=== PATIENT | female | born 1990 | race Caucasian/White ===

== ENCOUNTER 2017-07-17 14:51 | Emergency (ER) | payer MEDICAID, OTHER ==
[~2017-07-17] VITALS: Ht 160 cm; Wt 60.0 kg
[2017-07-17] MEDS ORDERED: BACITRACIN ZINC OINT UDPKT TOP ONE (18:30)
[2017-07-17] MEDS ORDERED: LIDOCAINE HCL 1%/EPI 1:200,000 30 ML VIAL MC ONE (18:30)
[2017-07-17] MEDS ORDERED: LIDOCAINE HCL/EPINEPHRINE 1%-EPI 1:100,000 50 ML VIAL INFIL ONE (18:43)
[2017-07-17 19:05] VITALS: BP 115/72
== END 2017-07-17 19:28 | disposition home or self-care (01) ==
LOC: ER 14:54
DX: L02.413 Cutaneous abscess of right upper limb (principal); L02.01 Cutaneous abscess of face; F11.10 Opioid abuse, uncomplicated; F12.10 Cannabis abuse, uncomplicated; Z88.0 Allergy status to penicillin
CPT/HCPCS: 10060; 10160; 99284; J3490; Z7610